=== PATIENT | female | born 1955 | race Caucasian/White ===

== ENCOUNTER 2021-11-18 14:00 | Inpatient (IN) | payer OTHER, MEDICAID ==
[~2021-11-18] VITALS: Ht 152.4 cm; Wt 804.9 kg
[2021-11-18 14:10] VITALS: BP_SYST 118
--- NOTE | 2021-11-18 14:12 | NUR ---
Patient arrived to bed with explosive diarrhea for a few days. Dr. roach pt
[2021-11-18] MEDS ORDERED: ONDANSETRON HCL 4 MG/2 ML VIAL IVP ONE (14:15)
[2021-11-18] MEDS ORDERED: NACL 0.9% 1,000 ML IV ONE (14:15)
--- NOTE | 2021-11-18 14:30 | NUR ---
Patient arrived to room for c/o abdominal pain, nausea, vomiting and diarrhea. Patient had diarrhea for 2 hours. Patient's daughter said patient drank green juice with Moringa plant and patient's daughter suspects patient may have had allergic reaction.
[2021-11-18 16:20] LABS: BASOPHILS % (AUTO) 0.1 % (0.0-2.0); EOSINOPHILS % (AUTO) 0.2 % (0.0-4.0); HEMOGLOBIN 13.8 g/dL (12.0-16.0); LYMPHOCYTES # (AUTO) 0.4 K/uL (1.0-5.5); MEAN CORPUSCULAR HEMOGLOBIN 31 pg (27-31); MEAN CORPUSCULAR HGB CONC 33 % (32-36); MEAN CORPUSCULAR VOLUME 95 fL (79.0-98.0); MONOCYTES # (AUTO) 0.6 K/uL (0.0-1.0); NEUTROPHILS % (AUTO) 88.7 % (40.0-70.0); PLATELET COUNT (AUTO) 317 K/uL (130-430); RED BLOOD CELL COUNT(AUTO) 4.42 MIL/uL (4.2-6.2); RED CELL DISTRIBUTION WIDTH 13.2 % (9.0-15.0)
[2021-11-18 16:25] LABS: BILIRUBIN,URINE NEGATIVE (NEGATIVE); BLOOD, URINE 2+ (NEGATIVE); COLOR,URINE YELLOW (YELLOW); GLUCOSE,URINE 3+ (NEGATIVE); KETONES,URINE TRACE (NEGATIVE); LEUKOCYTE ESTERASE ,URINE NEGATIVE (NEGATIVE); NITRITE, URINE NEGATIVE (NEGATIVE); PROTEIN URINE TRACE (NEGATIVE); UROBILINOGEN,URINE 0.2 (0.2-1.0)
[2021-11-18 16:33] LABS: CLARITY/URINE HAZY (CLEAR)
[2021-11-18 16:35] LABS: CALCIUM 9.2 mg/dL (8.4-11.0); CREATININE 0.94 mg/dL (0.55-1.30); POTASSIUM 3.7 mmol/L (3.5-5.1)
[2021-11-18 16:50] LABS: ALBUMIN 3.6 g/dL (3.4-4.8); TOTAL BILIRUBIN 0.5 mg/dL (0.0-1.0)
[2021-11-18 16:51] LABS: BACTERIA,URINE FEW /HPF (None Seen); MUCUS,URINE None Seen /LPF (None Seen)
[2021-11-18] MEDS ORDERED: POTASSIUM CHLORIDE 20 MEQ TAB.PRT.SR PO PRN (17:30)
[2021-11-18] MEDS ORDERED: DOCUSATE SODIUM 100 MG CAPSULE PO PRN (17:30)
[2021-11-18] MEDS ORDERED: ACETAMINOPHEN 325 MG TABLET PO PRN (17:30)
[2021-11-18] MEDS ORDERED: MUPIROCIN 2% TOPICAL OINTMENT 22 GM NS PRN (17:30)
[2021-11-18] MEDS ORDERED: MAGNESIUM SULFATE 50 ML IV PRN (17:30)
[2021-11-18] MEDS ORDERED: ZOLPIDEM TARTRATE 5 MG TABLET PO PRN (17:30)
[2021-11-18] MEDS ORDERED: DEXTROSE 50% JECT 50 ML DISP.SYRIN IVP PRN (17:30)
[2021-11-18] MEDS ORDERED: MORPHINE 2 MG/ML INJ. SYRINGE IVP PRN ×2 (17:30)
[2021-11-18] MEDS ORDERED: ONDANSETRON HCL 4 MG/2 ML VIAL IVP PRN (17:30)
[2021-11-18] MEDS ORDERED: hydrALAZINE HCL 20 MG/ML VIAL IVP PRN (17:30)
[2021-11-18] MEDS ORDERED: INSULIN LISPRO SLIDING SCALE 100 UNITS/ML VIAL (humaLOG) SUBCUT PRN (17:30)
--- NOTE | 2021-11-18 17:30 | NUR ---
COVID SPECIMEN SENT TO LAB 17:29.
[2021-11-18] MEDS ORDERED: METF-834 PO (17:33)
[2021-11-18] MEDS ORDERED: NEU300 PO (17:34)
[2021-11-18] MEDS ORDERED: METF-518 PO (17:34)
[2021-11-18] MEDS ORDERED: ATOR-1 PO (17:37)
[2021-11-18] MEDS ORDERED: LOSA100T23 PO (17:37)
[2021-11-18] MEDS ORDERED: METO-540 (17:38)
[2021-11-18] MEDS ORDERED: ASPI-1077 PO (17:39)
[2021-11-18] MEDS ORDERED: SSNOVOLOG SUBCUT (17:40)
[2021-11-18] MEDS ORDERED: EMPA25TA PO (17:40)
[2021-11-18] MEDS ORDERED: DULA4.5P (17:42)
--- NOTE | 2021-11-18 19:26 | NUR ---
Admit bed requested Patient will be admitted to care of . Admitted to TELE unit. Diagnosis VIRAL GASTROENTERITIS Inpatient (Yes or No) YES Observation (Yes or No) NO Orientation concerns or request close to nursing station (Yes or No) NO Covid Status PENDING On vent or bipap NO Isolation requirements NO Needs a sitter NO From Home (Yes or if No enter name of facility) YES Requires Dialysis (Yes or No) NO Med Rec Completed (Yes of No) PENDING
--- NOTE | 2021-11-18 19:29 | NUR ---
Received report from WINDY Garcia; assuming care of patient at this time.
--- NOTE | 2021-11-18 19:33 | NUR ---
Patient A/Ox4, VSS, ambulatory, resp even and unlabored. Patient resting comfortably in bed with side rails raised. Patient's daughter at bedside. Nad noted at this time.
--- NOTE | 2021-11-18 19:45 | NUR ---
ER MD March at bedside
[2021-11-18] MEDS ORDERED: LORazepam 1 MG TABLET PO PRN (20:15)
[2021-11-18] MEDS: NACL 0.9% 1,000 ML IV SCH (22:14)
--- NOTE | 2021-11-18 22:45 | NUR ---
Patient will be admitted to care of Dr Donahue. Admitted to Tele unit. Will go to room 119B. Belongings list completed. Complete and up to date summary report printed. SBAR report given to WINDY Neal at bedside with opportunity for questions.
[2021-11-18 22:52] VITALS: BP_SYST 129
--- NOTE | 2021-11-18 22:52 | NUR ---
ADMISSION NOTE Received patient from ER via gurney. Patient admitted with diagnosis of viral gastroenteritis. Patient is awake, alert, oriented X 4. Patient oriented to hospital room, call light, toileting, pain management and safety-teach back done. Patient informed that their room number is 119b. Personal belongings checked and Belongings List documented. Call light within reach.
[2021-11-19 00:46] VITALS: BP_SYST 122
[2021-11-19] MEDS: NACL 0.9% 1,000 ML IV SCH ×2 (03:30→13:30)
[2021-11-19 07:11] LABS: BASOPHILS % (AUTO) 0.1 % (0.0-2.0); EOSINOPHILS % (AUTO) 0.3 % (0.0-4.0); HEMATOCRIT 36.9 % (36-48); HEMOGLOBIN 12.6 g/dL (12.0-16.0); LYMPHOCYTES # (AUTO) 2.4 K/uL (1.0-5.5); LYMPHOCYTES % (AUTO) 30.5 % (20.5-51.5); MEAN CORPUSCULAR HEMOGLOBIN 32 pg (27-31); MEAN CORPUSCULAR HGB CONC 34 % (32-36); MEAN CORPUSCULAR VOLUME 95 fL (79.0-98.0); MONOCYTES # (AUTO) 0.7 K/uL (0.0-1.0); NEUTROPHILS # (AUTO) 4.6 K/uL (1.8-7.7); NEUTROPHILS % (AUTO) 60.1 % (40.0-70.0); PLATELET COUNT (AUTO) 329 K/uL (130-430); RED BLOOD CELL COUNT(AUTO) 3.89 MIL/uL (4.2-6.2); RED CELL DISTRIBUTION WIDTH 13.1 % (9.0-15.0); WHITE BLOOD COUNT (AUTO) 7.7 K/uL (4.8-10.8)
--- NOTE | 2021-11-19 07:31 | NUR ---
PATIENT'S BLOOD SUGAR THIS MORNING WAS 77. PATIENT'S ASYMPTOMATIC FOR HYPOGLYCEMIA. PATIENT'S A/O X4, NO C/O ABDOMINAL PAIN OR N/V. VSS. BP 124/74; CT 72; RR 18; AFEBRILE.
[2021-11-19 08:00] VITALS: BP_SYST 136
[2021-11-19 08:19] LABS: CALCIUM 8.3 mg/dL (8.4-11.0); CREATININE 0.74 mg/dL (0.55-1.30); POTASSIUM 3.5 mmol/L (3.5-5.1)
[2021-11-19 12:00] VITALS: BP_SYST 127
[2021-11-19 16:00] VITALS: BP_SYST 136
[2021-11-19 20:00] VITALS: BP_SYST 147
[2021-11-20] MEDS: NACL 0.9% 1,000 ML IV SCH (02:15)
--- NOTE | 2021-11-20 07:30 | NUR ---
Morning Rounds: Patient awake during rounds.Iv fluids running at left forearm intact. Call light with in reach. Bed locked at lowest position. No distress.
[2021-11-20 07:51] LABS: CALCIUM 8.6 mg/dL (8.4-11.0); CREATININE 0.69 mg/dL (0.55-1.30); POTASSIUM 3.7 mmol/L (3.5-5.1)
[2021-11-20 08:10] LABS: BASOPHILS % (AUTO) 0.2 % (0.0-2.0); EOSINOPHILS # (AUTO) 0.1 K/uL (0.0-0.4); HEMATOCRIT 34.5 % (36-48); HEMOGLOBIN 11.9 g/dL (12.0-16.0); LYMPHOCYTES # (AUTO) 1.8 K/uL (1.0-5.5); LYMPHOCYTES % (AUTO) 30.8 % (20.5-51.5); MEAN CORPUSCULAR HEMOGLOBIN 33 pg (27-31); MEAN CORPUSCULAR HGB CONC 35 % (32-36); MEAN CORPUSCULAR VOLUME 95 fL (79.0-98.0); MONOCYTES # (AUTO) 0.5 K/uL (0.0-1.0); MONOCYTES % (AUTO) 8.4 % (1.7-9.3); NEUTROPHILS # (AUTO) 3.4 K/uL (1.8-7.7); NEUTROPHILS % (AUTO) 59.6 % (40.0-70.0); PLATELET COUNT (AUTO) 317 K/uL (130-430); RED BLOOD CELL COUNT(AUTO) 3.63 MIL/uL (4.2-6.2); WHITE BLOOD COUNT (AUTO) 5.8 K/uL (4.8-10.8)
[2021-11-20 08:27] VITALS: BP_SYST 149
[2021-11-20] MEDS ORDERED: ATORVASTATIN 20 MG TABLET PO SCH (09:00)
[2021-11-20] MEDS ORDERED: METOPROLOL SUCCINATE 25 MG TAB.SR.24H (TOPROL XL) PO SCH (09:00)
--- NOTE | 2021-11-20 09:18 | NUR ---
Md Rounds: Patient seen by Dr. Donahue with discharge orders and f/u with her Pcp and continue home medications.
--- NOTE | 2021-11-20 10:22 | NUR ---
Dc telemetry: Downgraded patient to medical surgical floor as ordered by DR Donahue.
[2021-11-20 10:25] VITALS: BP_SYST 151
[2021-11-20 11:50] VITALS: BP_SYST 151
== END 2021-11-20 11:50 | disposition home or self-care (01) | DRG 392 ==
LOC: SED 14:00 → STU 17:17
PROVIDERS: ADMIT Family Medicine; ATTEND Family Medicine
DX: K52.9 Noninfective gastroenteritis and colitis, unspecified (principal); I10 Essential (primary) hypertension; E11.9 Type 2 diabetes mellitus without complications; E78.5 Hyperlipidemia, unspecified; Z20.822 Contact with and (suspected) exposure to COVID-19; Z98.891 History of uterine scar from previous surgery; Z79.4 Long term (current) use of insulin; Z79.899 Other long term (current) drug therapy
CPT/HCPCS: 36415; 76376; 80048; 80053; 81000; 82962; 83605; 83735; 85025; 87040; 96361; 96374; 99285; G0378; J2405